=== PATIENT | female | born 1965 | race Caucasian/White ===

== ENCOUNTER → 2017-08-23 | Outpatient (CLI) | payer BC, OTHER ==
[~2017-08-23] MED LIST: ASPI-161 PO; E-Z-GAS II EFFERVESCENT PACKET (SODIUM BICARB./CITRIC ACID/SIMETHICONE) As Ordered ONE; E-Z-HD 98% w/w 340GM SUSP BTL As Ordered ONE; E-Z-PAQUE 96% w/w SUSP 176GM BTL As Ordered ONE; LEVO175T2 PO; MULT1TAB10 PO; PANT40TA2 PO; [UNRECOGNIZED DRUG - CODE] SL
--- NOTE | 2017-08-24 17:27 | REP ---
Esophagram The procedure was performed under the direct supervision of Dr. Crisostomo. The images were reviewed with Dr. Crisostomo. A single view PA chest x-ray is submitted as a counselor at law film. The superior mediastinal structures are midline. The heart size is within normal limits. The lungs are clear. Liquid barium was given given in the erect position as well as liquid barium in the prone oblique position in order to perform a single contrast esophagram examination. The oral and pharyngeal stages of deglutition are unremarkable. There is degenerative disc disease of the cervical spine with disc narrowing at C 5/6 and C 6/7. Esophageal transport is prompt and efficient and there is no esophagitis, stricture, mucosal ring or hiatal hernia. Gastroesophageal reflux is not demonstrated on this examination. There are postsurgical changes of the stomach consistent with the patient's history of gastric bypass. Impression: Postsurgical changes consistent with the patient's history of gastric bypass otherwise unremarkable double contrast esophagram examination. There is degenerative disc disease of the cervical spine with disc narrowing at C 5/6 and C 6/7. 39 seconds of fluoro time was utilized for this procedure. Reviewed by JOSE Maki 08/23/2017 04:46 PSigned by Martin Crisostomo MD 08/24/2017 05:18 P
== END ==
LOC: M RAD 08:39
PROVIDERS: ATTEND Physician Assistant Medical
DX: R47.02 Dysphasia (principal)

== ENCOUNTER → 2019-07-10 | Outpatient (REF) | payer OTHER ==
[~2019-07-10] MED LIST changes: -E-Z-GAS II EFFERVESCENT PACKET (SODIUM BICARB./CITRIC ACID/SIMETHICONE) As Ordered ONE; -E-Z-HD 98% w/w 340GM SUSP BTL As Ordered ONE; -E-Z-PAQUE 96% w/w SUSP 176GM BTL As Ordered ONE; -PANT40TA2 PO; +PANT40TA3 PO
== END ==
LOC: M LAB LCGH 12:43
PROVIDERS: ATTEND Surgery
DX: K80.10 Calculus of gallbladder with chronic cholecystitis without obstruction (principal)

== ENCOUNTER 2021-03-22 07:19 | Day surgery (SDC) | payer BC, OTHER ==
[~2021-03-22] VITALS: Ht 162.6 cm; Wt 92.5 kg
[~2021-03-22 07:19] MED LIST changes: +LEVO150T7; +LISI2.5T2; +METF500T13 PO; +NS 1,000 ML IV ONE; +PANT40TA29 PO; -PANT40TA3 PO; +SIMETHICONE 40MG/0.6ML DROPS 30ML As Ordered ONE; +TRIA37.53
--- NOTE | 2021-03-22 08:48 | ROOR ---
Patient Name: Lala Houston Procedure Date: 03/22/2021 8:31 AM Date of : 1965 Age: 55 Room: [facility] Gender: Female Note Status: Finalized Procedure: Colonoscopy Indications: High risk colon cancer surveillance: Personal history of colonic polyps, Family history of colon cancer Providers: Doug PIERCE MD Referring MD: Ariadna Foley MD Requesting Provider: Medicines: Monitored Anesthesia Care Complications: No immediate complications. Procedure: Pre-Anesthesia Assessment: - The heart rate, respiratory rate, oxygen saturations, blood pressure, adequacy of pulmonary ventilation, and response to care were monitored throughout the procedure. The Colonoscope was introduced through the anus and advanced to the terminal ileum, with identification of the appendiceal orifice and IC valve. The colonoscopy was performed without difficulty. The patient tolerated the procedure well. The quality of the bowel preparation was good. Findings: Skin tags were found on perianal exam. Two sessile polyps were found in the transverse colon and cecum. The polyps were diminutive in size. These polyps were removed with a cold snare. Resection and retrieval were complete. Mild sigmoid diverticulosis and small internal hemorrhoids. The exam was otherwise without abnormality on direct and retroflexion views. Impression: - Perianal skin tags found on perianal exam. - Two diminutive polyps in the transverse colon and in the cecum, removed with a cold snare. Resected and retrieved. - Minimal sigmoid diverticulosis and small internal hemorrhoids. - The examination was otherwise normal on direct and retroflexion views. Recommendation: - Repeat colonoscopy in 5 years for surveillance. Procedure Code(s): --- Professional --- 18937, Colonoscopy, flexible; with removal of tumor(s), polyp(s), or other lesion(s) by snare technique Diagnosis Code(s): --- Professional --- Z80.0, Family history of malignant neoplasm of digestive organs K64.4, Residual hemorrhoidal skin tags K63.5, Polyp of colon Z86.010, Personal history of colonic polyps CPT copyright 2019 [employer]. All rights reserved. The codes documented in this report are preliminary and upon medical record coder review may be revised to meet current compliance requirements. Doug Pierce MD Doug PIERCE MD 03/22/2021 8:47:36 AM Electronically signed by Doug PIERCE MD Number of Addenda: 0 Note Initiated On: 03/22/2021 8:31 AM Estimated Blood Loss: Estimated blood loss: none.
[2021-03-22] MEDS ORDERED: propofoL 200 MG/20 ML VIAL As Ordered ONE (08:54)
[2021-03-22] MEDS ORDERED: LIDOCAINE 2% 100MG/5ML SDV (FOR ANES.) As Ordered ONE (08:54)
[2021-03-22 09:05] VITALS: BP 153/67
== END 2021-03-22 09:50 | disposition home or self-care (01) ==
LOC: M OPP 07:19
PROVIDERS: ATTEND Internal Medicine Gastroenterology
DX: Z12.11 Encounter for screening for malignant neoplasm of colon (principal); Z86.010 Personal history of colon polyps; Z80.0 Family history of malignant neoplasm of digestive organs; K63.5 Polyp of colon; K64.8 Other hemorrhoids; K64.4 Residual hemorrhoidal skin tags; K57.30 Diverticulosis of large intestine without perforation or abscess without bleeding; E03.9 Hypothyroidism, unspecified; E11.9 Type 2 diabetes mellitus without complications; I10 Essential (primary) hypertension; Z79.82 Long term (current) use of aspirin; Z79.84 Long term (current) use of oral hypoglycemic drugs; Z79.899 Other long term (current) drug therapy; Z98.84 Bariatric surgery status